=== PATIENT | female | born 1965 | race Hispanic/Latino ===

== ENCOUNTER 2016-08-03 08:14 | Emergency (ER) | payer SELFPAY ==
--- NOTE | 2016-08-03 08:28 | ED.PDOC ---
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 and nad nausea vomiting after the incident x1 and today noticed blister on her chest Timing/Duration: getting worse, other - 2 days ago Improving Factors: nothing Worsening Factors: nothing Associated Symptoms: other - body aches Allergies/Adverse Reactions: Allergies NO KNOWN ALLERGY Allergy (Verified 05/01/13 17:54) Home Medications: Ambulatory Orders Citalopram Hydrobromide [Celexa] 40 mg PO DAILY 07/11/14 Cephalexin 1,000 mg PO BID #30 cap 08/03/16 Sulfamethoxazole-Trimethoprim [Bactrim Ds 800-160 mg] 1 tab PO BID #14 tab 08/03 Review of Systems - Review of Systems Constitutional: States: no symptoms reported EENTM: States: no symptoms reported Respiratory: States: no symptoms reported Cardiology: States: no symptoms reported Gastrointestinal/Abdominal: States: no symptoms reported Genitourinary: States: no symptoms reported Musculoskeletal: States: no symptoms reported Skin: States: see HPI Neurological: States: no symptoms reported Endocrine: States: no symptoms reported Hematologic/Lymphatic: States: no symptoms reported Past Medical History (General) - Patient Medical History Hx Seizures: No Hx Stroke: No Hx Dementia: No Hx Asthma: No Hx of COPD: No Hx Cardiac Disorders: No Hx Congestive Heart Failure: No Hx Pacemaker: No Hx Hypertension: No Hx Thyroid Disease: No Hx Diabetes: No Hx Gastroesophageal Reflux: No Hx Renal Disease: No Hx Cancer: No Hx of HIV: No Hx Hepatitis C: No Hx MRSA: No Hx Other PMH: Yes - anxiety /depression Surgical History: other - hysterectomy - Vaccination History Hx Tetanus, Diphtheria Vaccination: No Hx Influenza Vaccination: No Hx Pneumococcal Vaccination: No - Social History Hx Tobacco Use: No Hx Chewing Tobacco Use: No Hx Alcohol Use: No Hx Substance Use: No Hx Substance Use Treatment: No Hx Depression: No Hx Physical Abuse: No Hx Emotional Abuse: No Hx Suspected Abuse: No - Activities of Daily Living Patient Lives Alone: No - family - Female History Patient : No Family Medical History - Family History Mother Living Status: Still Living Hx Family Hypertension: Yes Hx Family;Other: Minimal family histroy obtained d/t language barrier. Physical Exam - Physical Exam General Appearance: Alert, No apparent distress Eye Exam: bilateral normal Ears, Nose, Throat: hearing grossly normal, normal ENT inspection, normal pharynx Neck: non-tender, full range of motion, supple Respiratory: chest non-tender, lungs clear, normal breath sounds, no respiratory distress Cardiovascular/Chest: normal peripheral pulses, regular rate, rhythm, no murmur Peripheral Pulses: radial,right: 2+, radial,left: 2+ Gastrointestinal/Abdominal: normal bowel sounds, non tender, soft, no organomegaly Back Exam: normal inspection, no CVA tenderness, no vertebral tenderness Extremity: normal range of motion, non-tender, no pedal edema, no calf tenderness Neurologic: no motor/sensory deficits, alert, normal mood/affect, oriented x 3 Skin Exam: normal color, warm/dry, other - single bullous lesion with slight erythema anterior chest wall aspirated sent for c&s Lymphatic: no adenopathy Departure - Departure Clinical Impression: Insect bite of chest, infected Qualifiers: Encounter type: initial encounter Laterality: unspecified laterality Qualified Code(s): S20.369A - Insect bite (nonvenomous) of unspecified front wall of thorax, initial encounter Time of Disposition: 08:43 Disposition: Discharge to Home or Self Care Condition: Good Departure Forms: ED Discharge - Pt. Copy, Patient Portal Self Enrollment Instructions: DI for Insect Bites and Stings Referrals: Ashish Schultz MD [Primary Care Provider] - 1-2 Weeks Prescriptions: Cephalexin 1,000 mg PO BID #30 cap Sulfamethoxazole-Trimethoprim [Bactrim Ds 800-160 mg] 1 tab PO BID #14 tab Home Medications: Ambulatory Orders Citalopram Hydrobromide [Celexa] 40 mg PO DAILY 07/11/14 Cephalexin 1,000 mg PO BID #30 cap 08/03/16 Sulfamethoxazole-Trimethoprim [Bactrim Ds 800-160 mg] 1 tab PO BID #14 tab 08/03 Additional Instructions: Follow up with primary md 08/05/2016 as needed patient to call for appointment; Benadryl 25 mg (otc) by mouth 3x a day for itching
[2016-08-03] MEDS ORDERED: NEOMYCIN-BACITRACIN-POLYMYXIN 0.9 GM UD TOP ONE (08:33)
[2016-08-03 08:44] VITALS: BP 124/89; TEMP 98.8; O2SAT 96
== END 2016-08-03 08:51 | disposition home or self-care (01) ==
LOC: ER 08:14
DX: S20.369A Insect bite (nonvenomous) of unspecified front wall of thorax, initial encounter (principal); W57.XXXA Bitten or stung by nonvenomous insect and other nonvenomous arthropods, initial encounter; Y92.59 Other trade areas as the place of occurrence of the external cause; Y99.0 Civilian activity done for income or pay

== ENCOUNTER → 2017-07-08 | Outpatient (CLI) | payer OTHER | LOC: LAB.O 15:18 | PROVIDERS: ATTEND Obstetrics & Gynecology | DX: B35.1 Tinea unguium (principal) ==